=== PATIENT | female | born 1950 | race African-American/Black ===

== ENCOUNTER 2020-01-05 17:57 | Inpatient (IN) | payer MEDICARE, MEDICAID ==
[~2020-01-05] VITALS: Ht 162.6 cm; Wt 80.3 kg
[~2020-01-05 17:57] MED LIST: INCIVEK PO; [UNRECOGNIZED DRUG - OTHER] PO
[2020-01-05 22:45] LABS: BASOPHILS % 1.1 % (0.0-2.0); EOSINOPHILS % 2.2 % (0.0-5.0); HEMATOCRIT. 47.1 % (36.0-48.0); HEMOGLOBIN. 15.9 g/dL (12.0-16.0); LYMPHOCYTES % 31.3 % (20.0-50.0); MEAN CORPUSCULAR HEMOGLOBIN 32.9 pg (28.0-32.0); MEAN CORPUSCULAR VOLUME 97.3 fL (81.0-99.0); MEAN PLATELET VOLUME 11.2 fl (7.4-10.4); MONOCYTES % 9.2 % (2.0-8.0); NEUTROPHILS % 56.2 % (40.0-76.0); PLATELET 150 x1000/uL (130-400); RED BLOOD CELL COUNT 4.84 mill/uL (4.2-5.4); RED CELL DISTRIBUTION WIDTH 15.1 % (11.6-14.6)
[2020-01-05 22:49] LABS: CHLORIDE 97 mEq/L (98-107)
[2020-01-06] VITALS (7 sets, daily range): BP systolic 119–148; BP diastolic 61–87
[2020-01-06] MEDS ORDERED: ASPIRIN 81MG TABLET PO ONE (00:30)
[2020-01-06] MEDS ORDERED: CLONIDINE 0.2MG TABLET PO NR (03:15)
[2020-01-06] MEDS ORDERED: IOHEXOL-350 100 ML BOTTLE ONE (04:32)
[2020-01-06] MEDS ORDERED: AMLO5TAB4 PO (04:34)
[2020-01-06] MEDS ORDERED: CHOL200077 PO (04:34)
[2020-01-06] MEDS ORDERED: CYCLOBENZAPINE PO (04:34)
[2020-01-06] MEDS ORDERED: HYDROCHLOROTHIAZIDE PO (04:34)
[2020-01-06] MEDS ORDERED: NORCO PO (04:34)
[2020-01-06] MEDS ORDERED: ASPI-1497 PO (04:34)
[2020-01-06] MEDS ORDERED: CYAN50008 PO (04:34)
[2020-01-06] MEDS ORDERED: CLONIDINE 0.1MG TABLET PO PRN (05:30)
[2020-01-06] MEDS: HYDROCODONE/ACETAMINOPHEN 5/325MG TABLET PO PRN ×4 (06:02→21:17)
[2020-01-06] MEDS ORDERED: METOPROLOL TARTRATE 50MG TABLET PO SCH (09:00)
[2020-01-06] MEDS: ASPIRIN 325MG EC TABLET PO SCH (09:36)
[2020-01-06] MEDS: ENOXAPARIN 40MG/0.4ML SYR SUBCUT SCH (09:38)
[2020-01-06 13:18] LABS: LDL CHOLESTEROL 74 mg/dL (5-100)
[2020-01-06 13:20] LABS: HDL CHOLESTEROL 86 mg/dL (40-59)
[2020-01-06 15:56] LABS: CLARITY URINE CLEAR (CLEAR); COLOR URINE DARK YELLOW (YELLOW); KETONES URINE TRACE (NEGATIVE); LEUKOCYTE ESTERASE URINE TRACE (NEGATIVE); NITRITE URINE NEGATIVE (NEGATIVE); OCCULT BLOOD URINE NEGATIVE (NEGATIVE); PROTEIN URINE TRACE (NEGATIVE)
[2020-01-06] MEDS: CARVEDILOL 6.25 MG TABLET PO SCH ×2 (21:00→21:17)
[2020-01-06] MEDS ORDERED: ZOLPIDEM TARTRATE 5MG TABLET PO PRN (21:00)
[2020-01-07] VITALS: BP 125/55
[2020-01-07 04:00] VITALS: BP 150/70
[2020-01-07] MEDS: HYDROCODONE/ACETAMINOPHEN 5/325MG TABLET PO PRN ×2 (06:53→11:20)
[2020-01-07 08:00] VITALS: BP 121/60
[2020-01-07] MEDS: ASPIRIN 325MG EC TABLET PO SCH (08:42)
[2020-01-07] MEDS: CARVEDILOL 6.25 MG TABLET PO SCH (08:43)
[2020-01-07] MEDS: ENOXAPARIN 40MG/0.4ML SYR SUBCUT SCH (08:44)
[2020-01-07] MEDS ORDERED: HYDROCHLOROTHIAZIDE 12.5MG CAPSULE PO SCH (09:00)
[2020-01-07 12:02] VITALS: BP 126/72
[2020-01-07 14:00] VITALS: BP 129/68
== END 2020-01-07 15:59 | disposition home or self-care (01) | DRG 199 ==
LOC: ER 17:57 → ENRESERV 01-06 02:19 → 8WST 01-06 03:39
PROVIDERS: ADMIT Internal Medicine; ATTEND Internal Medicine
DX: I16.0 Hypertensive urgency (principal); I24.8 Other forms of acute ischemic heart disease; I50.9 Heart failure, unspecified; E87.1 Hypo-osmolality and hyponatremia; E87.8 Other disorders of electrolyte and fluid balance, not elsewhere classified; E66.9 Obesity, unspecified; I11.0 Hypertensive heart disease with heart failure; Z86.19 Personal history of other infectious and parasitic diseases; Z88.8 Allergy status to other drugs, medicaments and biological substances; Z79.899 Other long term (current) drug therapy; Z68.30 Body mass index [BMI] 30.0-30.9, adult; Z71.3 Dietary counseling and surveillance
CPT/HCPCS: 36415; 71045; 71275; 80053; 80061; 81003; 83605; 83880; 84443; 84484; 85025; 85379; 93005; 93306; 93970; 99285; J1650; Q9967

== ENCOUNTER 2021-03-04 19:58 | Emergency (ER) | payer MEDICARE, MEDICAID ==
[~2021-03-04] VITALS: Ht 160 cm; Wt 77.0 kg
[~2021-03-04 19:58] MED LIST changes: +AMLO5TAB4 PO; +ASPI-1497 PO; +CHOL200077 PO; +CYAN50009 PO; +CYCLOBENZAPINE PO; +HYDROCHLOROTHIAZIDE PO; -INCIVEK PO; +NORCO PO; -[UNRECOGNIZED DRUG - OTHER] PO
[2021-03-04 20:19] VITALS: BP 146/90
[2021-03-04] MEDS ORDERED: ACETAMINOPHEN 325MG TABLET PO STA (23:08)
[2021-03-05] MEDS ORDERED: NAPR-681 PO (01:27)
[2021-03-05] MEDS ORDERED: BACITRACIN ZINC OINT UDPKT TOP ONE (01:30)
== END 2021-03-05 01:40 | disposition home or self-care (01) ==
LOC: ER 19:58
DX: S00.83XA Contusion of other part of head, initial encounter (principal); M25.511 Pain in right shoulder; W18.39XA Other fall on same level, initial encounter; Y93.89 Activity, other specified; Y92.89 Other specified places as the place of occurrence of the external cause; Y99.8 Other external cause status; I10 Essential (primary) hypertension; Z79.899 Other long term (current) drug therapy
CPT/HCPCS: 70486; 73030; 99284

== ENCOUNTER 2022-12-17 08:39 | Inpatient (IN) | payer MEDICARE, OTHER ==
[~2022-12-17] VITALS: Ht 157.5 cm; Wt 73.5 kg
[~2022-12-17 08:39] MED LIST changes: +NAPR-681 PO
[2022-12-17 09:35] LABS: BASOPHILS % 0.3 % (0.0-2.0); EOSINOPHILS % 0.9 % (0.0-5.0); HEMATOCRIT. 42.4 % (36.0-48.0); HEMOGLOBIN. 14.6 g/dL (12.0-16.0); LYMPHOCYTES % 19.8 % (20.0-50.0); MEAN CORPUSCULAR HEMOGLOBIN 33.6 pg (28.0-32.0); MEAN CORPUSCULAR HGB CONC 34.4 g/dL (31.0-37.0); MEAN CORPUSCULAR VOLUME 97.5 fL (81.0-99.0); MEAN PLATELET VOLUME 9.3 fl (7.4-10.4); MONOCYTES % 4.6 % (2.0-8.0); NEUTROPHILS % 74.4 % (40.0-76.0); PLATELET 163 x1000/uL (130-400); RED BLOOD CELL COUNT 4.35 mill/uL (4.2-5.4); RED CELL DISTRIBUTION WIDTH 14.5 % (11.6-14.6); WHITE BLOOD COUNT 5.4 x1000/uL (4.5-11.0)
[2022-12-17 09:42] LABS: CHLORIDE 90 mEq/L (98-107); INDEX HEMOLYSI 1 (1-3); INDEX ICTERIC 1 (1-4); INDEX LIPEMIC 1 (1-3); SODIUM 128 mEq/L (136-145)
[2022-12-17 09:45] LABS: INR 1.1; PROTHROMBIN TIME 11.4 sec (9.6-11.0)
[2022-12-17 09:53] LABS: ALANINE AMINOTRANSFERASE 26 IU/L (13-61); ALBUMIN 3.6 g/dL (3.4-5.0); ASPARTATE AMINOTRANSFERASE 31 IU/L (15-37); BILIRUBIN TOTAL 0.9 mg/dL (0.1-1.0); CALCIUM 8.8 mg/dL (8.5-10.1); CARBON DIOXIDE 26 mEq/L (21-32); CREATININE 0.6 mg/dL (0.6-1.3); GLUCOSE 131 mg/dL (70-105); PROTEIN TOTAL 8.3 g/dL (6.0-8.3); TROPONIN I HIGH SENSITIVITY 17 ng/L (<54); UREA NITROGEN BLOOD 8 mg/dL (7-21)
[2022-12-17] MEDS ORDERED: IOHEXOL-350 100 ML BOTTLE ONE (14:59)
[2022-12-17 22:18] VITALS: BP 151/59; PULSE 65; RESP 18; TEMP 96.9
[2022-12-17 22:30] VITALS: BP 151/59; PULSE 65; RESP 18; TEMP 96.9
[2022-12-17] MEDS ORDERED: POTASSIUM CHLORIDE 20MEQ TABLET SR PO NR (22:45)
[2022-12-17] MEDS ORDERED: ACETAMINOPHEN 325MG TABLET PO PRN (22:45)
[2022-12-17] MEDS: HYDROCODONE/ACETAMINOPHEN 5/325MG TABLET PO PRN (23:15)
[2022-12-18] VITALS: BP 153/66; PULSE 89; RESP 18; TEMP 97
[2022-12-18 04:00] VITALS: BP 155/77; PULSE 89; RESP 20; TEMP 98.8
[2022-12-18 05:42] LABS: BASOPHILS % 0.1 % (0.0-2.0); EOSINOPHILS % 0.1 % (0.0-5.0); HEMATOCRIT. 43.9 % (36.0-48.0); LYMPHOCYTES % 12.8 % (20.0-50.0); MEAN CORPUSCULAR HEMOGLOBIN 33.6 pg (28.0-32.0); MEAN CORPUSCULAR HGB CONC 34.2 g/dL (31.0-37.0); MEAN CORPUSCULAR VOLUME 98.3 fL (81.0-99.0); MEAN PLATELET VOLUME 10.3 fl (7.4-10.4); MONOCYTES % 9.4 % (2.0-8.0); NEUTROPHILS % 77.6 % (40.0-76.0); PLATELET 174 x1000/uL (130-400); RED BLOOD CELL COUNT 4.46 mill/uL (4.2-5.4); RED CELL DISTRIBUTION WIDTH 14.7 % (11.6-14.6); WHITE BLOOD COUNT 7.3 x1000/uL (4.5-11.0)
[2022-12-18 05:49] LABS: CHLORIDE 97 mEq/L (98-107); INDEX HEMOLYSI 4 (1-3); INDEX ICTERIC 1 (1-4); INDEX LIPEMIC 1 (1-3); POTASSIUM 4.3 mEq/L (3.5-5.1); SODIUM 132 mEq/L (136-145)
[2022-12-18 05:57] LABS: CALCIUM 8.7 mg/dL (8.5-10.1); CARBON DIOXIDE 31 mEq/L (21-32); CHOLESTEROL 183 mg/dL (<200); CREATININE 0.5 mg/dL (0.6-1.3); GLUCOSE 103 mg/dL (70-105); HDL CHOLESTEROL 132 mg/dL (40-59); LDL CHOLESTEROL 63 mg/dL (5-100); TRIGLYCERIDE 49 mg/dL (0-150); UREA NITROGEN BLOOD 7 mg/dL (7-21)
[2022-12-18 08:00] VITALS: BP 160/69; PULSE 95; RESP 18; TEMP 96.3
[2022-12-18] MEDS: HYDROCODONE/ACETAMINOPHEN 5/325MG TABLET PO PRN ×3 (08:19→20:53)
[2022-12-18] MEDS: ENOXAPARIN 40MG/0.4ML SYR SUBCUT SCH (08:20)
[2022-12-18] MEDS: AMLODIPINE 10MG TABLET PO SCH (08:20)
[2022-12-18] MEDS: ASPIRIN 81MG TABLET PO SCH (08:20)
[2022-12-18 12:00] VITALS: BP 145/57; PULSE 90; RESP 20; TEMP 96.8
[2022-12-18 14:57] LABS: CLARITY URINE CLEAR (CLEAR); COLOR URINE DARK YELLOW (YELLOW); GLUCOSE URINE NEGATIVE (NEGATIVE); KETONES URINE 1+ (NEGATIVE); LEUKOCYTE ESTERASE URINE 2+ (NEGATIVE); NITRITE URINE NEGATIVE (NEGATIVE); OCCULT BLOOD URINE NEGATIVE (NEGATIVE); PROTEIN URINE NEGATIVE (NEGATIVE); SPECIFIC GRAVITY URINE 1.019 (1.005-1.030)
[2022-12-18 15:32] LABS: BACTERIA URINE RARE; RBC URINE 0-2 /hpf (0-2); SQUAMOUS EPITHELIAL CELL URINE FEW /lpf (RARE/1+)
[2022-12-18 16:00] VITALS: BP 141/63; PULSE 95; RESP 18; TEMP 96.7
[2022-12-18] MEDS ORDERED: CEFTRIAXONE 1,000 MG in DEXTROSE 5% WATER 50 ML IV SCH (19:00)
[2022-12-18 20:00] VITALS: BP 135/77; PULSE 104; RESP 18; TEMP 97.4
[2022-12-18] MEDS ORDERED: ATORVASTATIN CALCIUM 40MG TABLET PO SCH (21:00)
[2022-12-18] MEDS ORDERED: NALOXONE HCL 0.4MG/ML VIAL IV PRN (22:45)
[2022-12-19] VITALS: BP 131/71; PULSE 98; RESP 20; TEMP 98.4
[2022-12-19] MEDS: HYDROCODONE/ACETAMINOPHEN 10/325MG TABLET PO PRN ×2 (01:18→09:40)
[2022-12-19 04:00] VITALS: BP 129/58; PULSE 78; RESP 19; TEMP 97.7
[2022-12-19 08:00] VITALS: BP 154/76; PULSE 74; RESP 20; TEMP 96.6
[2022-12-19] MEDS: ENOXAPARIN 40MG/0.4ML SYR SUBCUT SCH (08:19)
[2022-12-19] MEDS: AMLODIPINE 10MG TABLET PO SCH (08:19)
[2022-12-19] MEDS: ASPIRIN 81MG TABLET PO SCH (08:19)
[2022-12-19 10:30] VITALS: BP 145/68; PULSE 85; TEMP 96.8; O2SAT 96
[2022-12-19 12:00] VITALS: BP 146/75; PULSE 75; RESP 18; TEMP 96.3
== END 2022-12-19 13:10 | disposition home or self-care (01) | DRG 812 ==
LOC: ER 09:59 → 8WST 13:04 → EDBEDREQ 13:09 → EDBEDREQTM 13:09
PROVIDERS: ADMIT Internal Medicine; ATTEND Internal Medicine
DX: T42.6X1A Poisoning by other antiepileptic and sedative-hypnotic drugs, accidental (unintentional), initial encounter (principal); G92.8 Other toxic encephalopathy; E87.1 Hypo-osmolality and hyponatremia; I10 Essential (primary) hypertension; J45.909 Unspecified asthma, uncomplicated; E87.6 Hypokalemia; Z79.899 Other long term (current) drug therapy; Y92.89 Other specified places as the place of occurrence of the external cause
CPT/HCPCS: 36415; 70496; 70498; 70551; 71045; 80048; 80053; 80061; 81003; 84484; 85025; 93005; 93306; 97162; 97530; 99285; J0696; J1650; J7060; Q9967

== ENCOUNTER 2024-03-03 10:09 | Emergency (ER) | payer MEDICARE, OTHER ==
[~2024-03-03] VITALS: Ht 152.4 cm; Wt 71.0 kg
[2024-03-03 10:15] VITALS: O2SAT 96
[2024-03-03] MEDS: ACETAMINOPHEN 325MG TABLET PO ONE (10:43)
[2024-03-03] MEDS ORDERED: NAPR-681 PO (12:47)
[2024-03-03] MEDS ORDERED: CYCL5TAB MT (12:47)
[2024-03-03] MEDS ORDERED: TOPUD MT (12:47)
[2024-03-03 12:49] VITALS: BP 144/77; PULSE 88; RESP 18; TEMP 36.89184; O2SAT 96
== END 2024-03-03 12:59 | disposition home or self-care (01) ==
LOC: ER 10:09
DX: S20.211A Contusion of right front wall of thorax, initial encounter (principal); J45.909 Unspecified asthma, uncomplicated; I10 Essential (primary) hypertension; Z79.899 Other long term (current) drug therapy; Z88.8 Allergy status to other drugs, medicaments and biological substances; W19.XXXA Unspecified fall, initial encounter; Y93.89 Activity, other specified; Y92.89 Other specified places as the place of occurrence of the external cause; Y99.8 Other external cause status
CPT/HCPCS: 71101; 99283